=== PATIENT | female | born 1955 ===

== ENCOUNTER 2022-01-14 09:48 | Outpatient (REF) | payer MEDICARE, SELFPAY ==
[2022-01-14 13:09] LABS: COVID-19 Test Negative (Negative); IDNOW Serial# 08D9AD1C
== END 2022-01-14 09:49 | disposition home or self-care (01) ==
LOC: HO.LAB 09:48
PROVIDERS: PCP Internal Medicine; Visit Provider Internal Medicine
DX: Z20.822 Contact with and (suspected) exposure to COVID-19 (principal)
CPT/HCPCS: 87635; C9803

== ENCOUNTER 2023-08-10 18:22 | Emergency (ER) | payer MEDICARE, SELFPAY ==
--- NOTE | ~2023-08-10 | XR_ITS ---
EXAMINATION: XR FOOT, RIGHT CLINICAL INFORMATION: Painful. COMPARISON: None available. TECHNIQUE: AP, lateral, and oblique views of the right foot. FINDINGS: There is a small calcaneal heel and retrocalcaneal enthesophytes. The ankle mortise and subtalar joints are normal. There is mild dorsal metatarsal soft tissue swelling. No visible acute fracture, dislocation or subluxation seen XR/XR foot RT min 3V IMPRESSION: 1. Small calcaneal heel and retrocalcaneal enthesophytes. No visible acute fracture, dislocation or subluxation seen. 2. Mild dorsal midfoot soft tissue swelling.
--- NOTE | ~2023-08-10 | XR_ITS ---
EXAMINATION: XR ANKLE, RIGHT CLINICAL INFORMATION: Fall. COMPARISON: Radiograph right foot earlier today. TECHNIQUE: AP, lateral, and mortise views of the right ankle. FINDINGS: No acute fractures or subluxation. Ankle mortise is maintained. Mild enthesophytes along the dorsal surface of the mid foot. Small calcaneal spurs. No unexpected radiopaque foreign bodies. XR/XR ankle RT min 3V IMPRESSION: 1. No acute fractures or subluxation. 2. Mild degenerative osteoarthritis.
[2023-08-10 18:51] VITALS: BP 144/77; PULSE 69; RESP 18; TEMP 37.2; O2SAT 99; BMI 28.9
[2023-08-10 20:35] VITALS: BP 158/94; PULSE 74; RESP 16; TEMP 37.2; O2SAT 98
[2023-08-10] MEDS: oxyCODONE HCl Immed Release 5 MG TABLET PO (21:29)
[2023-08-10] MEDS: Ketorolac Tromethamine 30 MG/ML VIAL IM (21:29)
--- NOTE | 2023-08-10 21:45 | ED.LOWEXIN ---
HPI - Extremity Injury (Lower) General Chief Complaint: Extremity Injury, Lower Stated Complaint: fall at [place], R ankle pain Time Seen by Provider: 08/10/23 20:37 Source: patient, RN notes reviewed and old records reviewed Mode of arrival: ambulatory History of Present Illness HPI Narrative: 68-year-old female with no significant past medical history presenting to the ED complaining of right foot/ankle pain s/p large plexiglass falling on foot at mall [employer]. Has been minimally ambulatory since incident secondary to pain. Denies injury to other area, head trauma or LOC, numbness/tingling. Related Data Previous Rx's Medication Instructions Recorded hydrocodone 5 mg-acetaminophen 325 1 tab PO Q8H PRN pain, severe 3 08/10/23 mg tablet days #5 tabs naproxen 500 mg tablet 500 mg PO BID PRN pain 10 days #20 08/10/23 tabs Allergies Allergy/AdvReac Type Severity Reaction Status Date / Time No Known Allergies Allergy Verified 08/10/23 18:51 Review of Systems Review of Systems: Constitutional: No Fever, No Chills ENT/Mouth: No Ear Pain, No Nasal Congestion, No sore throat, No Rhinorrhea, No Swallowing Difficulty Cardiovascular: No Chest Pain, No SOB Respiratory: No Cough, No Sputum, No Wheezing Gastrointestinal: No Nausea, No Vomiting, No Diarrhea, No Constipation, No Abdominal pain Genitourinary: No Dysuria, No Urinary Frequency, No Flank Pain Musculoskeletal: + joint pain, No Myalgias, + Joint Swelling Skin: No Skin Lesions, No rash Neuro: No Weakness, No Numbness, No Paresthesias Yes all other systems are reviewed and are negative Constitutional: Constitutional: Reports as per [facility] Past Medical History Attestation statement: The following information was validated with the patient. Source: old records reviewed Social History Social History Advance Directives: No Advance Directives Information Provided: No Physical Exam Vital Signs: Vital Signs: Last Vital Signs Temp 98.9 F 08/10/23 20:35 Pulse 74 08/10/23 20:35 Resp 16 08/10/23 20:35 BP 158/94 H 08/10/23 20:35 Pulse Ox 98 08/10/23 20:35 O2 Del Method Room Air 08/10/23 20:35 BMI result Body Mass Index 28.9 Const: General: cooperative, healthy appearing and no acute distress Orientation/consciousness: patient oriented x3 Limitations: no limitations HEENT: Head: Yes normal to inspection and Yes atraumatic Ears: hearing grossly normal bilaterally General nose exam: Normal external nose present Face and sinus: Yes normal facial exam Eyes: General: appearance normal, both eyes and all related structures EOM: EOMs intact bilaterally Neck: Neck: Yes normal visual inspection and Yes no meningeal signs Resp: Effort & Inspection: normal respiratory effort and no respiratory distress Cardio: Rate: regular rate Heart sounds: S1 normal heart sound present and S2 normal heart sound present Peripheral pulses: Peripheral pulses 2+ throughout Skin: Rashes: no rashes Wounds: no wounds Neuro: General: patient oriented x3, tone normal and no meningeal signs Cranial nerves: Yes CN's II-XII intact bilaterally Gait exam (Neuro): Normal gait present Extrem: Other: Right foot with mild swelling. Diffusely tender to palpation > lateral aspect. Ankle mildly tender. No swelling noted ankle. Limited ROM to ankle/foot secondary to pain. No erythema/warmth. No crepitus. Neurovascularly intact Course Course Course Narrative: XR foot RT min 3V IMPRESSION: 1. Small calcaneal heel and retrocalcaneal enthesophytes. No visible acute fracture, dislocation or subluxation seen. 2. Mild dorsal midfoot soft tissue swelling. XR ankle RT min 3V IMPRESSION: 1. No acute fractures or subluxation. 2. Mild degenerative osteoarthritis. > Jose wrap applied for comfort/debility. Patient admits she has walkers/assistive devices at home to aid with her getting around. Results discussed with patient including worrisome signs and symptoms and strict return precautions, and when to return to the emergency department. They verbalized understanding and feel safe for discharge at this time. Medications Administered Discontinued Medications Generic Name Dose Route Start Last Admin Trade Name Freq PRN Reason Stop Dose Admin Ketorolac Tromethamine 30 mg 08/10/23 21:01 08/10/23 21:29 Ketorolac Tromethamine 30 Mg/Ml Vial IM 08/10/23 21:02 30 mg ONCE ONE Administration Oxycodone HCl 5 mg 08/10/23 21:01 08/10/23 21:29 Oxycodone Hcl Immed Release 5 Mg Tablet PO 08/10/23 21:02 5 mg ONCE ONE Administration Medical Decision Making Medical Decision Making MDM Narrative: 68-year-old female with no significant past medical history presenting to the ED complaining of right foot/ankle pain s/p large plexiglass [place] foot [place] [employer]. On exam vital signs stable, NAD, nontoxic appearing, appears uncomfortable. Physical exam as above. Concern for fracture versus sprain. No evidence of cellulitis. Low suspicion for septic joint/arthritis or DVT Plan: X-rays, pain control Please refer to course for remaining clinical decision making, interpretation of labs/imaging results, and discussions with consultants and/or family members. Differential Diagnosis Differential Diagnoses: The differential diagnosis associated with the presentation includes As above Independent Interpretation I performed an independent interpretation of an: Plain X-Ray (Unremarkable) Radiology Impression Discussion of test interpretation with radiology: I have reviewed the radiologist's reading. Independent Historian Clinical information obtained from an independent historian. History obtained from or confirmed by: Spouse External Record Review External record reviewed: Inpatient record, Office record, Outpatient record, Prior outpatient labs, Prior outpatient radiology, Primary care record and Outside ED record Tests considered The following testing was considered but not selected: As above Prescription Management I considered prescription management with: Pain Medication Discharge Plan Discharge Clinical Impression: Foot sprain Patient Disposition: Home, Self-Care Instructions: Foot Sprain (ED), Ice Pack Application (ED) Additional Instructions: Your x-rays show no fracture Wear Jose wrap for compression and comfort Ice and elevate Naproxen is an anti-inflammatory/pain medicine take with food In addition [place] is not opiate pain medication, take only when pain is severe for the next 3 days Follow-up with your doctor Return to ED if symptoms persist or worsen Prescriptions: New hydrocodone-acetaminophen 5-325 mg tablet 1 tab PO Q8H PRN (Reason: pain, severe) 3 Days Qty: 5 0RF Rx Instructions: Partial Fill upon patient request. naproxen 500 mg tablet 500 mg PO BID PRN (Reason: pain) 10 Days Qty: 20 0RF Referrals: Victoria Riddle MD [Primary Care Provider] - 5 days Interventions: ED Discharge Assessment Last Done: 08/10/23 22:46 Discharge Date/Time: 08/10/23 22:47
== END 2023-08-10 22:47 | disposition home or self-care (01) ==
PROVIDERS: Emergency Provider Emergency Medicine Emergency Medical Services; PCP Internal Medicine
DX: S93.601A Unspecified sprain of right foot, initial encounter (principal); M25.571 Pain in right ankle and joints of right foot; Y29.XXXA Contact with blunt object, undetermined intent, initial encounter; Y93.9 Activity, unspecified; Y92.9 Unspecified place or not applicable; Y99.9 Unspecified external cause status
CPT/HCPCS: 73610; 73630; 96372; 99283; 99284; J1885

== ENCOUNTER 2024-02-21 11:26 | Day surgery (SDC) | payer MEDICARE, SELFPAY ==
[2024-02-16 09:30] VITALS: BMI 29.5
--- NOTE | 2024-02-20 13:21 | P.CONAN_ITS ---
Documented by User: Rehana Mckeon NP 02/20/24 14:28 HPI - Anesthesia Eval Consult details Narrative: 68yo F for Right Kidney Cryo-Ablation PMFSH Past Medical History Medical History Arthritis Anemia Seizures GERD (gastroesophageal reflux disease) HTN (hypertension) Liver mass Renal mass Surgical History Surgical History H/O colonoscopy History of surgery Social History Social History Are you a primary care team coordinator scheduler to a significant other at home: No Do you presently have visiting nurse or other home services: No Patient Tobacco Use Status: Former Tobacco user Quit Date: early Tobacco use type: Cigarette Years Smoked: 15 Use of substances other than those prescribed or required for medical reasons: No Have you been hit, kicked, punched, or otherwise hurt by someone within the past year? If so, by whom?: No Are you DNR?: No Advance Directives: No Advance Directives Information Provided: Yes Advance Directives on File: No Recently lost weight without trying: No Eating poorly because of decreased appetite: No Nutrition Risks: No Nutritional Risk Poor oral hygiene: No Meds Allergies Allergy/AdvReac Type Severity Reaction Status Date / Time No Known Allergies Allergy Verified 02/21/24 11:41 Home Medications Medication Instructions Recorded Confirmed Last Taken Type cholecalciferol (vitamin D3) 25 25 mcg PO QPM 02/16/24 02/21/24 02/20/24 History mcg (1,000 unit) capsule (Vitamin D3) diphenhydramine HCl 25 mg capsule 25 mg PO BEDTIME 02/16/24 02/16/24 Unknown History (Benadryl) ferrous sulfate 325 mg (65 mg 325 mg PO QAM 02/16/24 02/21/24 02/20/24 History iron) tablet hydrochlorothiazide 12.5 mg capsule 12.5 mg PO QAM 02/16/24 02/21/24 02/20/24 History lisinopril 20 mg tablet 20 mg PO QAM 02/16/24 02/21/24 02/20/24 History omeprazole 20 mg capsule,delayed 20 mg PO QPM 02/16/24 02/21/2424 History release Exam Height,Weight and Vital Signs: Height 4 ft 11 in Weight 66.224 kg Assessment and Plan Assessment Anesthesia Assessment: Chart Reviewed Documented by User: Sammi Serna MD 02/21/24 13:52 PMFSH Active Problems Active Problems: Right kidney upper pole mass- Incidentaol finding during w/u for liver tumor Past Medical History Medical History Arthritis Anemia Seizures GERD (gastroesophageal reflux disease) HTN (hypertension) Liver mass Renal mass Family History Family history of problems with anesthesia: No Surgical History Surgical History H/O colonoscopy History of surgery History of Problems with Anesthesia: Yes (PONV) Social History Social History Are you a primary care team coordinator scheduler to a significant other at home: No Do you presently have visiting nurse or other home services: No Patient Tobacco Use Status: Former Tobacco user Quit Date: early Tobacco use type: Cigarette Years Smoked: 15 Use of substances other than those prescribed or required for medical reasons: No Have you been hit, kicked, punched, or otherwise hurt by someone within the past year? If so, by whom?: No Are you DNR?: No Advance Directives: No Advance Directives Information Provided: Yes Advance Directives on File: No Recently lost weight without trying: No Eating poorly because of decreased appetite: No Nutrition Risks: No Nutritional Risk Poor oral hygiene: No Meds Allergies Allergy/AdvReac Type Severity Reaction Status Date / Time No Known Allergies Allergy Verified 02/21/24 11:41 Home Medications Medication Instructions Recorded Confirmed Last Taken Type cholecalciferol (vitamin D3) 25 25 mcg PO QPM 02/16/24 02/21/24 02/20/24 History mcg (1,000 unit) capsule (Vitamin D3) diphenhydramine HCl 25 mg capsule 25 mg PO BEDTIME 02/16/24 02/16/24 Unknown History (Benadryl) ferrous sulfate 325 mg (65 mg 325 mg PO QAM 02/16/24 02/21/24 02/20/24 History iron) tablet hydrochlorothiazide 12.5 mg capsule 12.5 mg PO QAM 02/16/24 02/21/24 02/20/24 History lisinopril 20 mg tablet 20 mg PO QAM 02/16/24 02/21/24 02/20/24 History omeprazole 20 mg capsule,delayed 20 mg PO QPM 02/16/24 02/21/24 02/20/24 History release Exam Height,Weight and Vital Signs: Height 4 ft 11 in Weight 66.224 kg Vital Signs Temp Pulse Resp BP Pulse Ox O2 Del Method 02/21/24 11:58 98.0 F 58 16 139/70 97 Room Air Pertinent Lab Results Pertinent Lab Results: Lab Results 02/21/24 Range/Units 12:01 WBC 6.9 (4.8-10.8) X10*3/uL RBC 3.88 L (4.20-5.50) X10*6/uL Hgb 11.0 L (12.0-16.0) g/dl Hct 33.2 L (37.0-47.0) % MCV 85.6 (80.0-98.0) fL MCH 28.4 (27.0-33.0) pg MCHC 33.1 (31.0-35.0) g/dl RDW 12.6 (11.0-16.0) % Plt Count 239 (160-400) X10*3/uL MPV 9.4 (9.4-12.3) fL Immature Gran % (Auto) 0.4 (0.0-0.4) % Neut % (Auto) 63.5 (45-73) % Lymph % (Auto) 22.6 (20-40) % [place] % (Auto) 10.3 (2-11) % Eos % (Auto) 2.6 (0-4) % Baso % (Auto) 0.6 (0-2) % Lymph # (Auto) 1.6 (1.2-4.9) X10*3/uL [place] # (Auto) 0.7 (0.1-1.2) X10*3/uL Eos # (Auto) 0.2 (0.0-0.4) X10*3/uL Baso # (Auto) 0.0 (0.0-0.2) X10*3/uL Abs Immat Gran (auto) 0.03 (0.00-0.03) X10*3/uL Absolute Neuts (auto) 4.4 (2.0-8.3) x10*3/uL Absolute Nucleated RBC 0.000 (0.0-0.012) X10*3/uL Nucleated RBC % (auto) 0.0 (0.0-0.2) /100WBC PT 12.4 (11.1-13.3) SEC INR 1.0 (0.9-1.1) APTT 30.4 (26.0-36.8) SEC Blood Type A Positive Antibody Screen NEGATIVE Airway Mallampati Class: III (Small mouth) TM Dist: >3cm Neck ROM: Limited Loose/Missing/Broken Teeth: No (Denies broken or loose teeth) Heart: RRR Lungs: CTAB Assessment and Plan Assessment Anesthesia Assessment: Anesthesia Plan Discussed and Chart Reviewed Final Anesthetic Review Family History of Problems with Anesthesia: No History of Problems with Anesthesia: Yes (PONV) NPO: Yes ASA Class: III Final Preanesthetic Review: No Changes in Pt Med Stat, Meds/Allgs Chart Reviewed, Consent Obtained/Reviewed and Anes Risks/Benef Reviewed Patient Risk: Intermediate Procedure Risk: Low Assessment/Block/Sedation in SS: Assess/Block/Sedation-SS Anesthetic Plan Anesthetic Plan: GA Disposition: Standard PACU
[2024-02-21] VITALS (11 sets, daily range): BP systolic 125–161; BP diastolic 70–92; PULSE 58–77; RESP 12–18; TEMP 36.1–37; O2SAT 95–97; BMI 31.4
--- NOTE | ~2024-02-21 | CT_ITS ---
CryoAblation of the mass in the upper pole of the right kidney INDICATIONS: Mass in the upper pole of the right kidney measuring 2.5 x 2.6 x 2.7 cm Anesthesia; general PROCEDURE: The patient was positioned in a supine position with the right side elevated approximately 30 degrees. The skin was prepped and draped in the usual fashion. A single cryoablation probes from [employer] was positioned into the upper pole lesion. Cryoablation treatment for 10 minutes was performed. Repeat scans demonstrate excellent ablation of the upper pole lesion. The lesion was thawed for 4 minutes followed by repeat freezing for [address] scan demonstrates excellent results with excellent margins detected. CT/CT guided ablation renal IMPRESSION: Successful cryoablation of the mass in the upper pole of the right kidney
[2024-02-21] MEDS: Lactated Ringers 1,000 ML 100 ML IVCONT (12:00)
[2024-02-21 12:06] LABS: MANUAL DIFF FLAG NO
[2024-02-21 12:15] LABS: Basophils Percent Auto 0.6 % (0-2); Eosinophils Absolute Auto 0.2 X10*3/uL (0.0-0.4); Eosinophils Percent Auto 2.6 % (0-4); Hematocrit 33.2 % (37.0-47.0); Imm Gran Abs Auto 0.03 X10*3/uL (0.00-0.03); Imm Gran Pct Auto 0.4 % (0.0-0.4); Lymphocytes Absolute Auto 1.6 X10*3/uL (1.2-4.9); Lymphocytes Percent Auto 22.6 % (20-40); Mean Corpuscular HGB Conc 33.1 g/dl (31.0-35.0); Mean Corpuscular Hemoglobin 28.4 pg (27.0-33.0); Mean Corpuscular Volume 85.6 fL (80.0-98.0); Mean Platelet Volume 9.4 fL (9.4-12.3); Monocytes Absolute Auto 0.7 X10*3/uL (0.1-1.2); Monocytes Percent Auto 10.3 % (2-11); Neutrophils Absolute Auto 4.4 x10*3/uL (2.0-8.3); Neutrophils Percent Auto 63.5 % (45-73); Platelet Count 239 X10*3/uL (160-400); Red Blood Count 3.88 X10*6/uL (4.20-5.50); Red Cell Distribution Width 12.6 % (11.0-16.0); White Blood Count 6.9 X10*3/uL (4.8-10.8)
[2024-02-21 12:32] LABS: Prothrombin Time 12.4 SEC (11.1-13.3)
[2024-02-21 12:35] LABS: Partial Thromboplastin Time 30.4 SEC (26.0-36.8)
[2024-02-21] MEDS: Scopolamine 1.5 MG PATCH.TD.3 TRANSDERMA (12:51)
[2024-02-21] MEDS: oxyCODONE HCl Immed Release 5 MG TABLET PO (17:00)
== END 2024-02-21 17:32 | disposition home or self-care (01) ==
PROVIDERS: Physician Assistant Surgical; PCP Internal Medicine; Visit Provider Student in an Organized Health Care Education/Training Program
DX: N28.89 Other specified disorders of kidney and ureter (principal); R53.83 Other fatigue; Z85.05 Personal history of malignant neoplasm of liver; Z90.89 Acquired absence of other organs; Z79.899 Other long term (current) drug therapy; Z87.891 Personal history of nicotine dependence; Z98.890 Other specified postprocedural states
CPT/HCPCS: 36415; 50593; 77013; 85025; 85610; 85730; 86850; 86900; 86901; C2618; J0131; J2250; J2704; J3010

== ENCOUNTER → 2024-02-21 13:13 | Outpatient (BNV) | payer MEDICARE, SELFPAY | PROVIDERS: PCP Internal Medicine; Visit Provider Radiology Vascular & Interventional Radiology | DX: N28.89 Other specified disorders of kidney and ureter (principal) | CPT/HCPCS: 50593; 77013 ==